=== PATIENT | male | born 1950 ===

== ENCOUNTER → 2025-01-10 13:58 | Outpatient (REF) | payer MEDICARE, SELFPAY | LOC: RAD 13:58 | PROVIDERS: ATTENDING PHYSICIAN Orthopaedic Surgery; FAMILY PHYSICIAN Internal Medicine Geriatric Medicine | DX: M79.662 Pain in left lower leg (principal); M79.661 Pain in right lower leg; Z96.652 Presence of left artificial knee joint; Z96.651 Presence of right artificial knee joint | CPT/HCPCS: 93970 ==

== ENCOUNTER 2025-01-16 22:42 | Inpatient (IN) | payer MEDICARE, SELFPAY ==
[2025-01-16 20:29] VITALS: BP 103/79
--- NOTE | 2025-01-16 20:39 | W.PN.UPDATE ---
Update Note
Progress Note Update
To facilitate communication I'll summarize the patient's situation. He had staged TKA by me with one done in 2022 and one in 2023. 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 Suddenly a week
or two ago he developed a huge knee effusion, fevers and night sweats as well as pain.
I saw him in the office monday and suspecting infection aspirated both knees and sent both samples to [facility] in [place]. The alpha defensin was negative but all other indicators were positive for infection. One knee had 20k wbc, the
other 50k. Synovial crp was kirit high and the DNA analysis showed positive proprionobacterium but negative DNA for staph, moisés or enterococcus. 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
a regular basis that he mostly shrugs off. Presumably this is a acute onset late PJI but since he has symptoms for a week or two it's not entirely fresh.
Plan will be for him to be admitted to hospitalist and I will operate tomorrow at noon for bilateral simultaneous knee revision with antibiotic knee articulating spacers. I have ordered abx for the cement, and iodine irrigation. When admitted I
would be grateful if he could be made NPO p MN. The surgery will be lengthy and invasive and from a medical standpoint any presurgery preparations should anticipate a 3+ hr surgery with possible need for ICU postop. (of note he's ambulatory and
not septic appearing presently)
I spoke with the patient while his was nearby [facility] by phone to communicate the situation. I also reached out to Pratik for orthopedic parts and Katt Linda of the ER to help facilitate his care. I did discuss with him that this is a
very adverse situation. He provided his verbal consent to proceed with surgery as planned.
[2025-01-16 20:56] VITALS: BMI 29.2
--- NOTE | 2025-01-16 21:00 | ED.MUSCINJ ---
HPI-Injury
General
Chief Complaint: Musculo-Skeletal Complaint
Source: patient and spouse
Exam Limitations: none
Time Seen by Provider: 01/16/25 20:38
Nursing documentation reviewed up to this point in time: agreed with
History of Present Illness-Injury
Is this injury a work related problem?: No
Is pt an associate of [facility]/[place]?: No
Initial Injury comments:
Patient sent to ED by Dr. Moody for bilateral knee infections, surgical intervention scheduled for tomorrow. Patient states swelling started approx 2 weeks ago. He reports fever and chills. He was evaluated by Dr. Moody and had both knee
joints asperated, cultures sent. He is unsure of culture results by was asked by Dr Moody to come to ED for admission. Will need bilateral knee revisions tomorrow.
Past History
Past History
ED Past Medical History: Other (Had acute cystitis 03/2022 w antibiotic use and told to get PSA which he hasn't done yet.) and Other (diverticulitis)
ED Past Surgical History: None
Social History
Tobacco: Non-smoker
Alcohol: None
Personal:
Living: with family
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
Review of Systems
Review of Systems
Allergies reviewed?: Yes
All Other Systems: ROS reviewed and negative except as documented in HPI and ROS
Constitutional: Reports no symptoms
EENT: Reports no symptoms
Respiratory: Reports no symptoms
Cardiac: Reports no symptoms
ABD/GI: Reports no symptoms
: Reports no symptoms
Musculoskeletal: Reports joint pain (bilateral knee pain and swelling)
Skin: Reports no symptoms
Neurological: Reports no symptoms
Psychiatric: Reports no symptoms
Musculoskeletal Injury Exam
Musculoskeletal Injury Exam
Bilateral Anterior Knee:
Pain with Movement?: Moderate
Tender to palpation?: Mild
External deformity and angulation?: Mild
Contusion?: None
Hematoma-local bleeding into tissue?: None
Strain- Sprain- Tear (Connective tissue injury)?: None
Crepitus with movement?: No
Joint instability?: No
Malalignment/deformity?: No
Range of motion: Limited
Distal skin color and temperature: normal-warm & good color
Capillary Refill: normal
Normal distal neurovascular exam?: Yes
Peripheral Pulses: dorsalis pedis (left): 3+ and dorsalis pedis (right): 3+
Phy Exam
General Physical Exam
General Presentation: well appearing and mild distress
General age: appears stated age
General Skin: warm and dry
General Habitus: normal
General Mental: alert
General Hydration: appears well hydrated
Musculoskeletal Exam
Musculoskeletal Exam: neuro vasc intact
Skin Exam
Skin Exam: normal color and warm/dry
Psychiatric Exam
Psychiatric Exam: normal mood/affect
Injury Course
Orders/Labs/Results
Orders:
Orders
01/16/25 20:33
Vancomycin [Vancocin] 1,000 mg CEMADD OR ONE
01/16/25 20:34
Tobramycin For Injection Custodial [Tobramycin (Nebcin) 1.2 Gram Vial] 1.2 grams CEMADD OR ONE
01/16/25 21:00
Type And Crossmatch [Type+Screen] Urgent
Complete Blood Count/With Diff Urgent
Comprehensive Metabolic Panel Urgent
Blood Culture Urgent
DAT Source: Blood/Venous
Specimen Description:
01/16/25 21:14
Vancomycin [Vancocin] 2,000 mg 0.9% Sodium Chloride 500 ml [Nss] 500 ml IV NOW
01/17/25 12:00
Povidone Iodine 10% Solution [Povidone Iodine 10%] 114 ml 0.9% Sod Chloride 3000 ml Irr [Nss Irrigation Bag] 3,000 ml IRRIG OR
Abnormal Lab Results
01/16/25
21:00
RBC 3.91 L 10^6/uL
(4.70-6.10)
Hgb 10.3 L g/dL
(13.0-18.0)
Hct 31.2 L %
(39.0-52.0)
MCV 79.8 L fL
(80.0-94.0)
MCH 26.3 L pg
(27.0-31.0)
Plt Count 478 H 10^3/uL
(130-400)
Abs Immat Gran (auto) 0.1 H 10^3/uL
(0-0.05)
Absolute Neuts (auto) 8.2 H 10^3/uL
(1.4-6.5)
Absolute Monos (auto) 0.8 H 10^3/uL
(0.1-0.6)
Immature Gran % 0.7 H %
(0-0.5)
Neutrophils % 78.2 H %
(42.2-75.2)
Lymphocytes % 12.5 L %
(20.5-51.1)
BUN 26 H mg/dl
(9-20)
Glucose 117 H mg/dl
(70-99)
Calcium 8.2 L mg/dl
(8.4-10.2)
Total Protein 5.9 L g/dl
(6.3-8.2)
Albumin 2.9 L g/dl
(3.5-5.0)
01/16/25 21:00
01/16/25 21:00
*Radiology
Radiology exam reviewed: radiology read reviewed
*Pulse Oximetry
SaO2: 98
Oxygen Mode of Delivery: Room air
Patient hypoxic: no
*Critical Care Note
Total Time (30-74mins, 75-104mins- exclusive of procedures): Not Applicable
Update Note
Update Note:
Patient sent to ED for bilateral septic knees. He had replacement of right in 2022, left 2023. No issues until swelling began 2 weeks ago. Seen by ortho, joint aspiration completed. Will need OR tomorrow for knee revisions due to septic joint
findings. WIll admit to hospitalist. Iv antibiotics initiated, NPO after midnight
ED Attending Note
-
Portions of this chart may have been created with voice recognition software.� Occasional wrong word or��sound alike� substitutions may have occurred due to the inherent limitations of voice recognition software.
Discharge Plan
Departure
Patient Disposition: Admit
Date of Disposition: 01/16/25
Time of Disposition: 21:09
Presentation/result/management discussed w/ accepting MD/DO: Hospitalist
Patient with high blood pressure during this ER visit?: No
Condition: Fair
Covid-19: Not Applicable
Discharge Problem:
Septic joint of left knee joint, Septic joint of right knee joint
Prescriptions:
No Action
potassium 99 mg Tablet
99 mg PO DAILY
cyanocobalamin (vitamin B-12) 500 mcg Tablet
500 mcg PO DAILY
ascorbic acid (vitamin C) [Vitamin C] 500 mg Tablet
500 mg PO DAILY
apple cider vinegar 600 mg Capsule
600 mg PO DAILY
ibuprofen 400 mg Tablet
400 mg PO Q8H PRN (Reason: back pain)
omega [id number]-fish oil [Fish Oil] 1,000 mg (120 mg-180 mg) Capsule
1 cap PO DAILY
Interventions
Interventions:
*Risk Screen - Suicide Last Done: 01/16/25 20:29
*General Assessment Last Done: 01/16/25 20:29
*Neglect/Abuse Screening Last Done: 01/16/25 20:29
*ED COVID-19 Vaccine History Last Done: 01/16/25 20:29
*ED Influenza Vaccine History Last Done: 01/16/25 20:29
ED-Musculoskeletal Assessment Last Done: 01/16/25 21:23
Discharge Date and Time
Print Language: SCOTTISH
[2025-01-16 21:14] LABS: Hematocrit 31.2 % (39.0-52.0); Hemoglobin 10.3 g/dL (13.0-18.0); Mean Corp Hgb Conc. 33.0 g/dL (33.0-37.0); Mean Corpuscular Volume 79.8 fL (80.0-94.0); Nucleated Red Blood Cells % 0 % (-); Platelet Count 478 10^3/uL (130-400); Red Cell Dist. Width 13.6 % (11.5-14.5)
[2025-01-16 21:31] LABS: ALT (SGPT) 16 U/L (0-50); AST (SGOT) 18 U/L (17-59); Albumin 2.9 g/dl (3.5-5.0); Alkaline Phosphatase 79 U/L (38-126); Blood Urea Nitrogen 26 mg/dl (9-20); Calcium 8.2 mg/dl (8.4-10.2); Carbon Dioxide 23 mmol/L (22-30); Chloride 105 mmol/L (98-107); Estimated Creatinine Clearance 85 ml/min; Glucose 117 mg/dl (70-99); Potassium 4.2 mmol/L (3.5-5.1); Sodium 136 mmol/L (135-145); Total Protein 5.9 g/dl (6.3-8.2); eGFR > 60.00
--- NOTE | 2025-01-16 21:33 | W.PN.UPDATE ---
Update Note
Progress Note Update
Since I have cultures pending from fluid sent from office it IS ok for patient to have antibiotics started tonight.
--- NOTE | 2025-01-16 21:57 | HPS.HSE ---
Addendum entered and electronically signed by Kareem Cao DO 01/16/25 23:28:
Patient seen and examined independently. Agree with findings and plan as set forth by FLORES Saldaña.
Patient is a 74y M with PMH significant for bilateral TKA (2022 and 2023) who presents to ED for admission for bilateral knee septic arthritis / PJI. Patient is a very healthy 74yo M with no chronic health issue, on no medications. He developed
pain in the knees with tightness in the calves and difficulty with ambulation over the past 6 weeks or so. He presented to his Orthopedic Surgeon when his symptoms persisted. He underwent aspiration of both knees yesterday and today was called and
advised to present to the ED as fluid analysis was consistent with infection.
Patient reports intermittent sweats but no measured fevers. No N/V/D, etc.
Ass:
Bilateral Knee Prosthetic Joint Infection
Propionobacterium infection
Microcytic Anemia
Plan:
Admit for further evaluation and treatment.
Continue IV vancomycin for gram positive septic arthritis / Proprionobacterium.
Orthopedic Surgery notes appreciated. Plan for OR tomorrow for washout / revision / abx coated spacers.
Follow-up final culture results / sensitivities and adjust abx regimen as needed.
Iron studies. Follow H&H nichole-operatively and transfuse if needed.
Original Note:
Family Physician
-
Family Physician:
Chief Complaint
-
Bilateral leg and knee swelling
History of Present Illness
74-year-old male from home who reportedly is a former. He developed bilateral knee effusions with chills and night sweats as well as pain approximately 1 to 2 weeks ago. The patient did not take his actual temperature. He reports he started
developing swelling to his lower feet and ankles and calves over the past 6 to 8 weeks then to his knees. He was seen in the office yesterday by Dr. Moody had aspiration of both knees which was sent out for culture and both were positive for
infection 1 reportedly with 20K WBC other 50K. He also had elevated CRP. Culture showed positive for proprionobacterium. 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 Patient with past
medical history of cystitis, diverticulitis.
Medical History
Past Medical History
Past Medical History: Reports Other
Additional Past Medical History:
Cystitis 2021
History diverticulitis
Past Surgical History: Reports Other
Additional Past Surgical History:
Right knee replacement 2022
Left knee replacement 2023
Social History
Tobacco: Non-smoker
Alcohol: None
Drug: None
Personal:
Living: With Family
Employment: Employed (Patient owns own farm with horses, sheep,)
Family History
Family History: Not pertinent
Allergies / Home Medications
Allergies reflects when Allergies were last updated in [facility].
Home Medications with original date entered in [facility]
Allergy/Medication List:
Allergies
Allergy/AdvReac Type Severity Reaction Status Date / Time
No Known Allergies Allergy Verified 01/16/25 20:56
Home Medications
No Meds [No Current Medications] 01/16/25
Review of Systems
-
History Source: Patient
A 12 point ROS was completed and negative except as noted: Yes
Constitutional: Reports Chills; Denies Fever
EENT: Denies Sore Throat or Runny Nose
Respiratory: Denies Cough or Trouble Breathing
Cardiac: Denies Chest Pain, Diaphoresis, Palpitations or Syncope
Abdomen/GI: Denies Abdominal Pain, Nausea, Vomiting, Diarrhea, Constipated or Bloody Stools
: Denies Dysuria, Frequency, Flank Pain, Incontinence or Difficulty Voiding
Musculoskeletal: Reports Joint Swelling (Bilateral knee effusions) and Edema (+1 bilateral lower leg nonpitting edema with calf pain)
Skin: Denies Itching or Rash
Neurological: Denies Dizzy, Headache or Weakness
Endocrine: Reports No Symptoms
Hematologic/Lymphatic: Reports No Symptoms
Psych: Reports Calm
Physical Exam
Vital Signs
Vital Signs
Temp Pulse Resp BP Pulse Ox
98.6 F 89 15 103/79 98
01/16/25 20:29 01/16/25 20:29 01/16/25 20:29 01/16/25 20:29 01/16/25 21:08
Physical Exam
General: Chills; No Fever or Sweats
HEENT: NormoCephalic, Anicteric, Moist mucous membranes, PERRLA, Seaman Conjunctivae and No Ptosis
Respiratory: Clear; No Wheezes, Rales or Rhonchi
Cardiac: S1/S2, Regular Rhythm and Peripheral Edema (+1 bilateral lower leg nonpitting edema with calf pain)
Breast: Deferred by me
GI: Soft, Non Tender, Non Distended, Normal Bowel Sounds and No Hepatosplenomegaly
Genito-urinary: Deferred by me
Musculoskeletal: No Clubbing, No Cyanosis and Other (+1 bilateral lower leg nonpitting edema with calf pain); No Edema, Left Upper Extremity or Edema, Right Upper Extremity
Skin: Warm and Dry; No Rash or Jaundice
Neuro: AO x 3, No Motor Deficits, Nonfocal/grossly intact, Cranial Nerves Intact and No Sensory Deficits; No Slurred Speech, Facial Droop or Tremors
Psych: Calm
Laboratory Results
-
01/16/25 21:00
01/16/25 21:00
Laboratory Results
Total Bilirubin 0.5 mg/dl (0.2-1.3) 01/16/25 21:00
AST 18 U/L (17-59) 01/16/25 21:00
ALT 16 U/L (0-50) 01/16/25 21:00
Alkaline Phosphatase 79 U/L (38-126) 01/16/25 21:00
Impression/Plan
-
Impression/plan:
Admit to tele
#Bilateral septic knees with bilateral leg edema
#Right knee 2022, left knee 2023 replacements
- Fluid cultures obtained by orthopedic surgeon Dr. Moody in office and sent for cultures
Okay to start antibiotics inpatient
Office synovial fluid aspiration culture showed Culture showed positive for Proprionobacterium.
- N.p.o. after midnight
- OR in a.m. for bilateral simultaneous knee revision with antibiotic knee articulating spacers
- IV vancomycin, tobramycin single dose
-Continue IV vancomycin
-Check EKG
- Type and screen
Venous duplex bilateral legs 01/10/2025 negative for DVT
#Microcytic anemia
Hgb 10.3, MCV 79.8
-Check iron panel, B12, folate
#History of cystitis March 2022
#History of diverticulitis in past
DVT prophylaxis
Bilateral foot pumps
Full code
[2025-01-16] MEDS: VANCOCIN 540 MG IV (22:05)
[2025-01-16 22:52] LABS: Iron 24 ug/dl (49-181)
[2025-01-16 23:02] LABS: Total Iron Binding Capacity 200 ug/dl (261-462)
[2025-01-16 23:46] VITALS: BP 149/87; BMI 28.4
[2025-01-17] VITALS (12 sets, daily range): BP systolic 107–146; BP diastolic 53–75
--- NOTE | 2025-01-17 | PTCARENOTE ---
Recieved pt. from ED. Pt ambulated from stretcher to bed. Pt. oriented to unit and call fu placed within reach. Pt. care ongoing.
[2025-01-17 01:04] LABS: Ferritin 427.0 ng/ml (17.9-464.0)
[2025-01-17 01:36] LABS: Folate 5.7 ng/ml (2.76-20); Vitamin B12 815 pg/ml (239-931)
--- NOTE | 2025-01-17 07:53 | W.PN.HOSP.TC ---
Today's Communication/Plan
-
Continue IV antibiotic.
Repeat blood culture pending.
For OR today.
Echo pending
Assessment / Plan
Assessment / Plan
Impression:
74-year-old male with past medical history of cystitis, diverticulitis, bilateral knee replacement, done on 2022, 2023, He developed bilateral knee effusions with chills and night sweats as well as pain approximately 1 to 2 weeks ago. The patient
did not take his actual temperature. He reports he started developing swelling to his lower feet and ankles and calves over the past 6 to 8 weeks then to his knees. He was seen in the office by Dr. Moody and had aspiration of both knees which
was sent out for culture and both were positive for infection reportedly with 20K WBC other 50K. He also had elevated CRP. Culture showed positive for proprionobacterium. He is unsure of how both knees became infected however tends to get
multiple scrapes and cuts farming. Patient admitted under hospitalist service, orthopedic consulted and plan for OR.
Started on IV antibiotic, infectious ease consulted.
Assessment/plan:
Bilateral septic knees
#Right knee 2022, left knee 2023 replacements
- Fluid cultures obtained by orthopedic surgeon Dr. Moody in office and sent for cultures
Okay to start antibiotics inpatient
Office synovial fluid aspiration culture showed Culture showed positive for Proprionobacterium.
Plan for OR today
Orthopedic/infectious disease
Continue IV Rocephin.
Venous duplex bilateral legs 01/10/2025 negative for DVT
Repeat blood culture pending.
Echo pending
Iron deficiency anemia
On admission Hgb 10.3, MCV 79.8
Iron level 24, saturation 12
Normal B12, folate
Most recent colonoscopy June 2022 shows:
Diverticulosis in the sigmoid colon and in the descending colon, Internal hemorrhoids.
Start oral iron.
Patient denies dark stools or rectal bleeding
History of diverticulitis in past
CODE STATUS: Full code
DVT prophylaxis: SCDs
Diet: NPO
Disposition: Continue IV antibiotic.
Repeat blood culture pending.
For OR today.
Echo pending
Total time spent on today's encounter was 51 minutes which included time spent in counseling the patient/family regarding diagnosis and treatment plan as listed above, goals of care, and symptom management. Case was discussed with nursing staff,
specialists, and care coordinators/case management. All labs and imaging personally reviewed by me. Remainder the time spent in detailed review of previous records, lab data, imaging, and other medical provider documentation.
Anticipated Discharge: > 48 hours
Subjective/Interval History
-
Date of Service: January 17, 2025
Patient seen and examined at bedside, denies any chest pain or shortness of breath, no abdominal pain, no nausea, no vomiting, no diarrhea or constipation.
For OR today.
Objective Data
-
Labs:
Laboratory Results
01/16/25 01/17/25
21:00 06:00
WBC 10.5 Pending
Hgb 10.3 L Pending
Hct 31.2 L Pending
Plt Count 478 H Pending
Sodium 136 Pending
Potassium 4.2 Pending
Chloride 105 Pending
Carbon Dioxide 23 Pending
BUN 26 H Pending
Creatinine 0.8 Pending
Glucose 117 H Pending
Calcium 8.2 L Pending
Total Bilirubin 0.5 Pending
AST 18 Pending
ALT 16 Pending
Alkaline Phosphatase 79 Pending
Vital Signs:
Vital Signs
Temp Pulse Resp BP Pulse Ox
98.6 F 99 20 149/87 97
01/16/25 23:46 01/16/25 23:46 01/16/25 23:46 01/16/25 23:46 01/17/25 00:17
Physical Exam
-
General: Well Developed, Well Nourished, No Apparent Distress and Comfortable
HEENT: Normocephalic, Atraumatic, Moist Mucous Membranes, No Ptosis, PERRLA and Nose Appears Normal
Respiratory: Clear to Auscultation and Non Labored Respirations
Cardiac: Regular Rhythm and S1/S2
Breast: Deferred by me
GI: Soft, Nontender, Nondistended and Normal Bowel Sounds
Genito-urinary: No Costovertebral Tender
Musculoskeletal: No Clubbing, No Cyanosis, No Edema and Other (Bilateral knee effusion)
Skin: Warm
Neuro: Awake, Alert, Oriented, AO x 3 and No Motor Deficits
Psych: Calm
Data Reviewed
-
Diagnostic Radiology: Image personally visualized and interpreted and Report Reviewed by me
CT Scan: Image personally visualized and interpreted and Report Reviewed by me
Ultrasound: Image personally visualized and interpreted and Report Reviewed by me
MRI: Image personally visualized and interpreted and Report Reviewed by me
Medical Tests (Nuc Med, Echo etc): Image personally visualized and interpreted and Report Reviewed by me
Labs: Labs Reviewed by me
Old Records: Reviewed
[2025-01-17 08:53] LABS: Hematocrit 32.4 % (39.0-52.0); Hemoglobin 10.6 g/dL (13.0-18.0); Mean Corp Hgb Conc. 32.7 g/dL (33.0-37.0); Mean Corpuscular Volume 83.1 fL (80.0-94.0); Nucleated Red Blood Cells % 0 % (-); Platelet Count 528 10^3/uL (130-400); Red Cell Dist. Width 13.7 % (11.5-14.5)
--- NOTE | 2025-01-17 09:23 | CON.ORTHO ---
Consultation
-
Date/Time Consultation Requested: 01/17/2025
Date/Time Consultation Performed: 01/17/2025
Requesting Provider: Fay Benton MD
Performing Provider: Ketty López PA-C, for Dr. Grady Moody
Reason for Consultation: Bilateral TKA PJI
Consultation - Orthopedics
History
HPI: Iker is a 74-year-old male who presented to our outpatient orthopedic office 2 days ago complaining of bilateral knee pain and swelling. He states 6 weeks ago he had no symptoms in his bilateral knees and was doing daily and work activities
without any restrictions. Over the course of the past several weeks, but more so the past several days, he began to experience increased swelling about his knees. He has been experiencing associated night sweats and feeling feverish. He denies
any recent illnesses, injuries, breaks in the skin, or dental work. On Monday, his bilateral knees were aspirated and sent for [facility]. Both knees were noted to have a high white blood cell count and positive for Propionibacterium. He was
advised to present to the emergency department under the direction of Dr. Moody. He was admitted to the hospitalist service as he will require a bilateral knee I&D and revision total knee arthroplasty. Overall, he is healthy and takes no
medications. He denies any medical comorbidities or problems with anesthesia in the past.
Past medical history: Nonsignificant.
Past surgical history: Right TKA in 2022, left TKA February 2024.
Social history: Lives at home with . Denies tobacco or alcohol use.
Family history: Noncontributory.
Review of systems: All systems reviewed and negative except for those mentioned in HPI.
Allergies / Home Medications
Allergy/AdvReac Type Severity Reaction Status Date / Time
No Known Allergies Allergy Verified 01/16/25 20:56
�Medication �Instructions �Recorded
No Meds [No Current Medications] 01/16/25
Vital Signs / Lab Results
Temp Pulse Resp BP Pulse Ox
98.3 F 82 17 131/75 98
01/17/25 08:00 01/17/25 08:00 01/17/25 08:00 01/17/25 08:00 01/17/25 08:00
01/17/25 06:59
Physical examination:
General: Well-developed, well nourished male in no acute distress at rest. Not septic appearing.
HEENT: Atraumatic, normocephalic, neck supple.
Heart: Regular rate and rhythm.
Lungs: Nonlabored breathing on room air, no audible wheezing.
Bilateral knees: Incisions about anterior knees are well-healed. No evidence of erythema or drainage. Mild warmth, but large effusions present bilaterally. Range of motion 0 to 120 degrees without pain. No instability. Calfs are soft and
nontender palpation. Neurovascular intact distally.
Assessment / Plan
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
Plan: Unfortunately, Mr. Jules has prosthetic joint infections of his bio bilateral total knee replacements. At this time, our recommendation is to proceed with a bilateral knee I&D and revision total knee arthroplasty. The surgery was explained
in detail along with the associated risk, benefits, and recovery process. Surgical consent was signed and placed at the OR front services agent. Preoperatively, his hemoglobin is low, so I advised him there is a possibility that he will need a blood
transfusion going forward if his hemoglobin continues to drop. Blood consents were signed as well. Antibiotic powder for the cement was ordered and available at the front services agent. Intraoperative irrigation also ordered. Plan will be to take him to
the operating room later this afternoon under the directions of both Dr. Moody and Dr. Longoria. He will remain n.p.o. until that time. Infectious disease has been consulted for postoperative antibiotic recommendations. All questions were
answered and patient was in agreement with current treatment recommendations.
[2025-01-17 09:34] LABS: ALT (SGPT) 15 U/L (0-50); AST (SGOT) 17 U/L (17-59); Albumin 2.9 g/dl (3.5-5.0); Alkaline Phosphatase 71 U/L (38-126); Blood Urea Nitrogen 21 mg/dl (9-20); Calcium 8.3 mg/dl (8.4-10.2); Carbon Dioxide 22 mmol/L (22-30); Chloride 106 mmol/L (98-107); Estimated Creatinine Clearance 97 ml/min; Glucose 84 mg/dl (70-99); Potassium 4.5 mmol/L (3.5-5.1); Sodium 137 mmol/L (135-145); Total Protein 6.0 g/dl (6.3-8.2); eGFR > 60.00
[2025-01-17 09:51] LABS: C-Reactive Protein 226.10 mg/L (0.0-10.00)
--- NOTE | 2025-01-17 09:53 | PHA.VAN.IN ---
Assessment
- Assessment
Renal Function: Appears similar to baseline
Maximum Temperature: 98.6
Minimum Temperature: 98.3
AUC Dosing Plan
- Dosing Variables
Dosing Weight (kg): 92
Dosing CrCl (ml/min): 97
Vd coefficient (L/kg): 0.7
- Empiric Dosing
Initial / Loading Dose: 2000 mg 01/16 at 22:00 (21 mg/kg)
Maintenance Regimen: vanc 1250 mg iv q12h starting 01/17 1800, give 1 g now prior to sx at 1200
Estimated AUC (mcg*h/mL): 486
Estimated Peak (mcg*h/mL): 30.4
Estimated Trough (mcg/ml): 12.5
Estimated Half Life (H): 8.2
- Monitoring
No levels ordered at this time: consider in the upcoming days
Pharmacokinetics Vancomycin I
- -
Patient Age: 74
Patient Sex: Male
Vancomycin Day #: 1
Indication: Skin And Soft Tissue (prosthetic joint infection)
Pertinent Antimicrobial Allergies:
no known allergies
Height / Weight:
Height 5 ft 11 in
Actual Weight 92.193 kg
Pertinent Past Medical History: TKA 2022 and 2023;
- Vital Signs / Lab Results
Temp Pulse Resp BP Pulse Ox
98.3 F 82 17 131/75 98
01/17/25 08:00 01/17/25 08:00 01/17/25 08:00 01/17/25 08:00 01/17/25 08:00
Lab Results - Hematology
01/16/25 01/17/25
21:00 06:59
WBC 10.5 8.1
Lab Results - Chemistry
01/16/25 01/17/25
21:00 06:59
BUN 26 H 21 H
Creatinine 0.8 0.7
Estimated Creat Clear 85 97
Albumin 2.9 L 2.9 L
[2025-01-17] MEDS: VANCOCIN 200 IV (10:29)
--- NOTE | 2025-01-17 10:58 | CM ---
Patient seen at bedside on , with and son. Patient states that he lives with his in a one story home with 3 steps to enter; iron railings on both sides. Patient for OR today. Patient has had [facility] in the past after knee
replacements. Patient PCP is Dr. Taylor and he uses the [facility] on [facility]. Patient anticipates needing IV antibiotics per and may benefit from therapy assessment to clarify level of care needed at discharge. Patient very determined to
go home with VN but family encouraged him to discuss options with physician. IF patient needs iv antibiotics he would like to use [facility], pending physician and therapy recommendations patient may need referrals for Acute rehab or [facility].
CM will continue to follow for discharge planning needs.
Plan; pending medical treatment plan; therapy recommendations.
--- NOTE | 2025-01-17 10:59 | CON.ID ---
Consultation
-
Date/Time Consultation Requested: 01/17/25 7:50
Date/Time Consultation Performed: 01/17/25 10:59
Requesting Provider: Dr Benton
Performing Provider: Dr Michael
Reason for Consultation: Bilateral TKA septic joint
Chief Complaint / Past History
Chief Complaint
bilateral septic knees
History of Present Illness
Mr Jules is a 74 year old male with history of bilateral total knee replacements 2022 and 2023 who presented here from his orthopedic surgeons office for pain and swelling in the bilateral knees for about 6 weeks. He also had night sweats and
felt feverish. He denies any recent illnesses, injuries, breaks in the skin, or dental work. Reports no known immunosuppression or cancer diagnoses. Only medication is a multivitamin. He was seen in his orthopedist's office and both knees were
aspirated for synovasure and both resulted with P acnes by PCR. He was referred to the ER for bilateral I&D and revision.
Since arrival here he has been afebrile, bp stable, wbc 10.5 now 8.1, hgb 10.3, plt 478, L shift was noted, cr 0.8, CRP 226, ESR pending, there is no imaging of the knees, a single set of blood cultures was sent and patient was started on
vancomycin. ID is consulted for assistance with management. He is currently on vancomycin.
Past History
Additional Past Medical History:
Cystitis 2021
History diverticulitis
Additional Past Surgical History:
Right knee replacement 2022
Left knee replacement 2023
Allergy History:
No Known Allergies Allergy (Verified 01/16/25 20:56)
Medications Reviewed: Yes
Social History
Tobacco: Non-Smoker
Alcohol: None
Drug: None
Family History
Family History: Not Pertinent
Review of Systems
Review of Systems
General: Fever and Chills
A 12 point ROS was completed and negative except as noted above
Vital Signs
Temp Pulse Resp BP Pulse Ox
98.3 F 82 17 131/75 98
01/17/25 08:00 01/17/25 08:00 01/17/25 08:00 01/17/25 08:00 01/17/25 08:00
Physical Exam
Physical Exam
Constitutional: No Acute Distress
Cardiovascular: Regular Rate and S1/S2; Negative Murmur or Rub
Pulmonary: Clear and Symmetric; Negative Wheezes, Rales or Rhonchi
Gastrointestinal: Soft, Non Tender, Non Distended and Normal Bowel Sounds
Extremities: Negative Splinter Hemorrhage or [place] Lesions
Musculoskeletal: Other (biltaeral knees swollen, midly warm, no erythema)
Skin: Warm and Dry; Negative Rash or Jaundice
Lab / Diagnostic Study Results
01/17/25 06:59
01/17/25 06:59
Abs Immat Gran (auto) 0.1 10^3/uL (0-0.05) H 01/17/25 06:59
Absolute Neuts (auto) 6.4 10^3/uL (1.4-6.5) 01/17/25 06:59
Absolute Lymphs (auto) 0.9 10^3/uL (1.2-3.4) L 01/17/25 06:59
Absolute Monos (auto) 0.6 10^3/uL (0.1-0.6) 01/17/25 06:59
Absolute Basos (auto) 0.0 10^3/uL (0-0.2) 01/17/25 06:59
Immature Gran % 0.7 % (0-0.5) H 01/17/25 06:59
Neutrophils % 79.4 % (42.2-75.2) H 01/17/25 06:59
Lymphocytes % 11.4 % (20.5-51.1) L 01/17/25 06:59
Monocytes % 7.2 % (1.7-9.3) 01/17/25 06:59
Eosinophils % 1.1 % (0-6) 01/17/25 06:59
Basophils % 0.2 % (0-2) 01/17/25 06:59
C-Reactive Protein 226.10 mg/L (0.0-10.00) H 01/17/25 07:27
Microbiology Results
Micro:
01/16/25 21:00 Blood Culture - Pending
Blood/Venous
Assessment / Plan
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
- endocarditis of [place] valve with P acnes is exceedingly rare; however would pursue TTE and blood cultures x2 given bilateral infections
- organism identified on synovasure of each knee separately
- for the OR today
- switch to ceftriaxone, stop vancomycin
- plan a course of outpatient IV antibiotics
Care Review
Plan reviewed with: Physician (Dr Moody)
[2025-01-17] MEDS: ROCEPHIN IV (14:24)
[2025-01-17] MEDS: STERILE WATER FOR INJECTION IV (14:24)
--- NOTE | 2025-01-17 17:21 | W.PN.UPDATE ---
Update Note
Progress Note Update
Bilat knee revisions completed. Bilateral knee purulence present. Full synovectomy and revision of all components with high dose abx cement performed. Postop xray looks good, wbat bLE . Apprec med and ID help.
--- NOTE | 2025-01-17 17:22 | PTCARENOTE ---
report given to nurse Giulia on . patient's belongings including shoes and undergarments brought to room 5857
[2025-01-17] MEDS: ZOFRAN 4 MG IV (17:56)
[2025-01-17] MEDS: DILAUDID 0.5 MG IV ×2 (17:59→18:18)
[2025-01-17] MEDS: COMPAZINE 5 MG IV (18:32)
[2025-01-17] MEDS: ROXICODONE 5 MG PO ×2 (18:42→21:37)
--- NOTE | 2025-01-17 19:30 | PTCARENOTE ---
Pt arrived to unit from PACU, AAOx3, able to make needs known, pain minimal in b/l knees neurovascular WNL. dressings with acewraps CDI. Pt oriented to room and hospital policies, call fu within reach, will continue with plan of care.
[2025-01-17] MEDS: SENOKOT 17.2 MG PO (20:07)
[2025-01-17] MEDS: BACTROBAN 2% OINTMENT NASAL (20:07)
[2025-01-17] MEDS: COLACE 100 MG PO (20:07)
[2025-01-17] MEDS: ASPIRIN 325 MG PO (21:37)
[2025-01-18] MEDS: ZOFRAN 4 MG IV (00:36)
[2025-01-18 03:38] VITALS: BP 128/83
[2025-01-18] MEDS: ROXICODONE 10 MG PO ×4 (04:04→23:53)
[2025-01-18 06:45] LABS: Hematocrit 30.4 % (39.0-52.0); Hemoglobin 9.8 g/dL (13.0-18.0); Mean Corp Hgb Conc. 32.2 g/dL (33.0-37.0); Mean Corpuscular Volume 82.2 fL (80.0-94.0); Nucleated Red Blood Cells % 0 % (-); Platelet Count 518 10^3/uL (130-400); Red Cell Dist. Width 13.7 % (11.5-14.5)
[2025-01-18 07:15] LABS: ALT (SGPT) 16 U/L (0-50); AST (SGOT) 18 U/L (17-59); Albumin 2.7 g/dl (3.5-5.0); Alkaline Phosphatase 62 U/L (38-126); Blood Urea Nitrogen 24 mg/dl (9-20); Calcium 7.8 mg/dl (8.4-10.2); Carbon Dioxide 21 mmol/L (22-30); Chloride 108 mmol/L (98-107); Estimated Creatinine Clearance 97 ml/min; Glucose 117 mg/dl (70-99); Potassium 4.7 mmol/L (3.5-5.1); Sodium 137 mmol/L (135-145); Total Protein 5.5 g/dl (6.3-8.2); eGFR > 60.00
[2025-01-18 07:20] VITALS: BP 130/76
[2025-01-18] MEDS: COLACE 100 MG PO ×2 (08:31→19:11)
[2025-01-18] MEDS: ASPIRIN 325 MG PO (08:31)
[2025-01-18] MEDS: BACTROBAN 2% OINTMENT 1 APPLIC NASAL ×2 (08:32→20:00)
[2025-01-18] MEDS: SENOKOT 17.2 MG PO ×2 (08:32→19:11)
--- NOTE | 2025-01-18 08:54 | W.PN.ORTHO ---
Today's Communication / Plan
-
74-year-old male postoperative day 1 bilateral knee PJI debridement irrigation and revision with Dr. Moody
- Current cultures no growth to date; blood cultures no growth to date; Synovasure dated 01/15/2025 negative alpha defense and, CRP greater than 60, total cell count 50,000 with neutrophils 91.3% and mononuclear cells 8.7 and positive acromial ID
panel of P acnes.
- Infectious disease following, appreciate assistance
- Weightbearing as tolerated to bilateral lower extremities.
- PT/OT/DC planning
- Internal medicine as primary; appreciate assistance of this patient
- DVT PPx: Recommend ASA daily unless recommended otherwise per primary, SCDs while in bed
- Pain controlled with current regimen
- Diet per primary
Orthopedic surgery will continue to follow
Assessment
.
Distal Motor Intact: Yes
Dressing:
Clean, dry and intact.
Plan
.
Surgery / Date: B/L knee PJI I&D revision Dr. Moody 01/17
Activity:
Out of bed.
PT/OT
Subjective
.
.:
Patient resting comfortably.
Vital Signs and Labs
.
Vital Signs and Labs:
Lab Results
01/18/25 05:27
01/18/25 05:27
Temp Pulse Resp BP Pulse Ox
97.8 F 85 16 130/76 97
01/18/25 07:20 01/18/25 07:20 01/18/25 07:20 01/18/25 07:20 01/18/25 07:20
--- NOTE | 2025-01-18 10:14 | W.PN.HOSP.TC ---
Today's Communication/Plan
-
Continue IV antibiotic.
blood culture / OR culture pending.
Echo pending
Assessment / Plan
Assessment / Plan
Impression:
74-year-old male with past medical history of cystitis, diverticulitis, bilateral knee replacement, done on 2022, 2023, He developed bilateral knee effusions with chills and night sweats as well as pain approximately 1 to 2 weeks ago. The patient
did not take his actual temperature. He reports he started developing swelling to his lower feet and ankles and calves over the past 6 to 8 weeks then to his knees. He was seen in the office by Dr. Moody and had aspiration of both knees which
was sent out for culture and both were positive for infection reportedly with 20K WBC other 50K. He also had elevated CRP. Culture showed positive for proprionobacterium. He is unsure of how both knees became infected however tends to get
multiple scrapes and cuts farming. Patient admitted under hospitalist service, orthopedic consulted and plan for OR.
Started on IV antibiotic, infectious disease consulted.
Assessment/plan:
Bilateral septic knees
#Right knee 2022, left knee 2023 replacements
- Fluid cultures obtained by orthopedic surgeon Dr. Moody in office and sent for cultures
Okay to start antibiotics inpatient
Office synovial fluid aspiration culture showed Culture showed positive for Proprionobacterium.
Plan for OR today
Orthopedic/infectious disease
Continue IV Rocephin.
Venous duplex bilateral legs 01/10/2025 negative for DVT
Repeat blood culture / OR culture pending.
Echo pending
Iron deficiency anemia
On admission Hgb 10.3, MCV 79.8
Iron level 24, saturation 12
Normal B12, folate
Most recent colonoscopy June 2022 shows:
Diverticulosis in the sigmoid colon and in the descending colon, Internal hemorrhoids.
Start oral iron.
Patient denies dark stools or rectal bleeding
History of diverticulitis in past
CODE STATUS: Full code
DVT prophylaxis: SCDs
Diet:Regular
Disposition: Continue IV antibiotic.
blood culture / OR culture pending.
Echo pending
Total time spent on today's encounter was 51 minutes which included time spent in counseling the patient/family regarding diagnosis and treatment plan as listed above, goals of care, and symptom management. Case was discussed with nursing staff,
specialists, and care coordinators/case management. All labs and imaging personally reviewed by me. Remainder the time spent in detailed review of previous records, lab data, imaging, and other medical provider documentation.
Anticipated Discharge: > 48 hours
Subjective/Interval History
-
Date of Service: January 18, 2025
Patient seen and examined at bedside, denies any chest pain or shortness of breath, no abdominal pain, no nausea, no vomiting, no diarrhea or constipation.
Mild bilateral knee pain
Objective Data
-
Labs:
Laboratory Results
01/18/25
05:27
WBC 12.5 H
Hgb 9.8 L
Hct 30.4 L
Plt Count 518 H
Sodium 137
Potassium 4.7
Chloride 108 H
Carbon Dioxide 21 L
BUN 24 H
Creatinine 0.7
Glucose 117 H
Calcium 7.8 L
Total Bilirubin 0.4
AST 18
ALT 16
Alkaline Phosphatase 62
Vital Signs:
Vital Signs
Temp Pulse Resp BP Pulse Ox
97.8 F 85 16 130/76 97
01/18/25 07:20 01/18/25 07:20 01/18/25 07:20 01/18/25 07:20 01/18/25 07:20
I&O
01/17/25 01/18/25 01/19/25
06:59 06:59 06:59
Intake Total 330 / 330
Balance 330 / 330
Physical Exam
-
General: Well Developed, Well Nourished, No Apparent Distress and Comfortable
HEENT: Normocephalic, Atraumatic, Moist Mucous Membranes, No Ptosis, PERRLA and Nose Appears Normal
Respiratory: Clear to Auscultation and Non Labored Respirations
Cardiac: Regular Rhythm and S1/S2
Breast: Deferred by me
GI: Soft, Nontender, Nondistended and Normal Bowel Sounds
Genito-urinary: No Costovertebral Tender
Musculoskeletal: No Clubbing, No Cyanosis, No Edema and Other (Bilateral knee dressing)
Skin: Warm
Neuro: Awake, Alert, Oriented, AO x 3 and No Motor Deficits
Psych: Calm
--- NOTE | 2025-01-18 12:05 | W.PN.ID1 ---
Date of Service
Date of Service: January 18, 2025
Today's Communication
will need a course of IV antibiotics
also awaiting echo
Assessment / Plan
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
- endocarditis of [place] valve with P acnes is exceedingly rare; however would pursue TTE and blood cultures x2 given bilateral infections - awaiting results
- organism identified on synovasure of each knee separately - P acnes
- S/p revision of the bilateral knees with new components yesterday
- continue ceftriaxone
- plan a course of outpatient IV antibiotics
Chief Complaint
-: Other (prosthetic knee joint infections)
Subjective / Review of Systems
afebrile
bp stable
s/p revision of the bilateral knees with new knee components and antibiotic cement
Vital Signs / Physical Exam
Vital Signs
Vital Signs
Temp Pulse Resp BP Pulse Ox
97.8 F 85 16 130/76 97
01/18/25 07:20 01/18/25 07:20 01/18/25 07:20 01/18/25 07:20 01/18/25 07:20
Physical Exam
Constitutional: No Acute Distress
Cardiovascular: Regular Rate and S1/S2; Negative Murmur or Rub
Pulmonary: Clear and Symmetric; Negative Wheezes or Rales
Gastrointestinal: Soft, Non Tender, Non Distended and Normal Bowel Sounds
Extremities: Other (dressing in place)
Skin: Warm and Dry; Negative Rash or Jaundice
Objective Data
Lab Data
Lab Results
01/18/25 05:27
01/18/25 05:27
ESR 87 mm/hour (0-20) H 01/17/25 07:28
Estimated Creat Clear 97 ml/min 01/18/25 05:27
Total Bilirubin 0.4 mg/dl (0.2-1.3) 01/18/25 05:27
AST 18 U/L (17-59) 01/18/25 05:27
ALT 16 U/L (0-50) 01/18/25 05:27
Alkaline Phosphatase 62 U/L (38-126) 01/18/25 05:27
C-Reactive Protein 226.10 mg/L (0.0-10.00) H 01/17/25 07:27
Most recent labs reviewed.
Micro Results:
01/17/25 11:52 Blood Culture - Preliminary
Blood/Venous No Growth in 24 hours- Final report to follow
01/16/25 21:00 Blood Culture - Preliminary
Blood/Venous No Growth in 24 hours- Final report to follow
01/17/25 15:02 Tissue Culture - Pending
Knee - Right Gram Stain - Preliminary
01/17/25 15:02 Tissue Culture - Pending
Knee - Left Gram Stain - Preliminary
[2025-01-18] MEDS: STERILE WATER FOR INJECTION 20 ML IV (12:12)
[2025-01-18] MEDS: ROCEPHIN 2000 MG IV (12:12)
[2025-01-18 15:45] VITALS: BP 125/67
[2025-01-18 19:15] VITALS: BP 124/80
[2025-01-19 03:00] VITALS: BP 119/66
[2025-01-19] MEDS: ROXICODONE 10 MG PO ×4 (03:56→21:44)
[2025-01-19 06:20] LABS: Hematocrit 27.7 % (39.0-52.0); Hemoglobin 9.1 g/dL (13.0-18.0); Mean Corp Hgb Conc. 32.9 g/dL (33.0-37.0); Mean Corpuscular Volume 82.4 fL (80.0-94.0); Nucleated Red Blood Cells % 0 % (-); Platelet Count 461 10^3/uL (130-400); Red Cell Dist. Width 13.9 % (11.5-14.5)
[2025-01-19 06:42] LABS: ALT (SGPT) 15 U/L (0-50); AST (SGOT) 21 U/L (17-59); Albumin 2.6 g/dl (3.5-5.0); Alkaline Phosphatase 61 U/L (38-126); Blood Urea Nitrogen 28 mg/dl (9-20); Calcium 7.9 mg/dl (8.4-10.2); Carbon Dioxide 22 mmol/L (22-30); Chloride 106 mmol/L (98-107); Estimated Creatinine Clearance 68 ml/min; Glucose 95 mg/dl (70-99); Potassium 4.3 mmol/L (3.5-5.1); Sodium 135 mmol/L (135-145); Total Protein 5.3 g/dl (6.3-8.2); eGFR > 60.00
[2025-01-19 08:00] VITALS: BP 127/90
[2025-01-19] MEDS: SENOKOT 17.2 MG PO ×2 (08:40→20:27)
[2025-01-19] MEDS: FEOSOL 325 MG PO (08:40)
[2025-01-19] MEDS: ASPIRIN 325 MG PO (08:40)
[2025-01-19] MEDS: COLACE 100 MG PO ×2 (08:40→20:27)
--- NOTE | 2025-01-19 09:49 | W.PN.ORTHO ---
Today's Communication / Plan
-
74-year-old male postoperative day 2 bilateral knee PJI debridement irrigation and revision with Dr. Moody
- Current cultures no growth to date; blood cultures no growth to date; Synovasure dated 01/15/2025 negative alpha defense and, CRP greater than 60, total cell count 50,000 with neutrophils 91.3% and mononuclear cells 8.7 and positive acromial ID
panel of P acnes.
- Infectious disease following, appreciate assistance
- Weightbearing as tolerated to bilateral lower extremities.
- PT/OT/DC planning
- Internal medicine as primary; appreciate assistance of this patient
- DVT PPx: Recommend ASA daily unless recommended otherwise per primary, SCDs while in bed
- Pain controlled with current regimen
- Diet per primary
Orthopedic surgery will continue to follow
Assessment
.
Distal Motor Intact: Yes
Dressing:
Clean, dry and intact.
Plan
.
Surgery / Date: B/L knee PJI I&D revision Dr. Moody 01/17
Activity:
Out of bed.
PT/OT
Subjective
.
.:
Patient resting comfortably.
Vital Signs and Labs
.
Vital Signs and Labs:
Lab Results
01/19/25 05:50
01/19/25 05:50
Temp Pulse Resp BP Pulse Ox
98.1 F 100 16 127/90 97
01/19/25 08:00 01/19/25 08:00 01/19/25 08:00 01/19/25 08:00 01/19/25 08:00
--- NOTE | 2025-01-19 10:13 | W.PN.ID1 ---
Date of Service
Date of Service: January 19, 2025
Today's Communication
- continue ceftriaxone
- plan a course of outpatient IV antibiotics
- awaiting echo
Assessment / Plan
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
- endocarditis of [place] valve with P acnes is exceedingly rare; however would pursue TTE and blood cultures x2 given bilateral infections - awaiting results anticipated monday
- organism identified on synovasure of each knee separately - P acnes
- S/p revision of the bilateral knees with new components 01/17
- continue ceftriaxone
- place PICC line
- plan a course of outpatient IV antibiotics
Chief Complaint
-: Other (prosthetic knee joint infections)
Subjective / Review of Systems
afebrile
bp stable
awaiting echo
Vital Signs / Physical Exam
Vital Signs
Vital Signs
Temp Pulse Resp BP Pulse Ox
98.1 F 100 16 127/90 97
01/19/25 08:00 01/19/25 08:00 01/19/25 08:00 01/19/25 08:00 01/19/25 08:00
Physical Exam
Constitutional: No Acute Distress
Cardiovascular: Regular Rate and S1/S2; Negative Murmur or Rub
Pulmonary: Clear and Symmetric; Negative Wheezes or Rales
Gastrointestinal: Soft, Non Tender, Non Distended and Normal Bowel Sounds
Skin: Warm and Dry; Negative Rash or Jaundice
Objective Data
Lab Data
Lab Results
01/19/25 05:50
01/19/25 05:50
ESR 87 mm/hour (0-20) H 01/17/25 07:28
Estimated Creat Clear 68 ml/min 01/19/25 05:50
Total Bilirubin 0.5 mg/dl (0.2-1.3) 01/19/25 05:50
AST 21 U/L (17-59) 01/19/25 05:50
ALT 15 U/L (0-50) 01/19/25 05:50
Alkaline Phosphatase 61 U/L (38-126) 01/19/25 05:50
C-Reactive Protein 226.10 mg/L (0.0-10.00) H 01/17/25 07:27
Most recent labs reviewed.
Micro Results:
01/17/25 15:02 Tissue Culture - Preliminary
Knee - Left No Growth After 48 Hours
Gram Stain - Preliminary
01/17/25 15:02 Tissue Culture - Preliminary
Knee - Right No Growth After 48 Hours
Gram Stain - Preliminary
01/16/25 21:00 Blood Culture - Preliminary
Blood/Venous No Growth in 48 hours- Final report to follow
01/17/25 11:52 Blood Culture - Preliminary
Blood/Venous No Growth in 24 hours- Final report to follow
--- NOTE | 2025-01-19 11:24 | W.PN.HOSP.TC ---
Today's Communication/Plan
-
Continue IV antibiotic.
blood culture / OR culture pending.
Echo pending
Ordered PICC line
Assessment / Plan
Assessment / Plan
Impression:
74-year-old male with past medical history of cystitis, diverticulitis, bilateral knee replacement, done on 2022, 2023, He developed bilateral knee effusions with chills and night sweats as well as pain approximately 1 to 2 weeks ago. The patient
did not take his actual temperature. He reports he started developing swelling to his lower feet and ankles and calves over the past 6 to 8 weeks then to his knees. He was seen in the office by Dr. Moody and had aspiration of both knees which
was sent out for culture and both were positive for infection reportedly with 20K WBC other 50K. He also had elevated CRP. Culture showed positive for proprionobacterium. He is unsure of how both knees became infected however tends to get
multiple scrapes and cuts farming. Patient admitted under hospitalist service, orthopedic consulted and plan for OR.
Started on IV antibiotic, infectious disease consulted.
Ordered echocardiogram.
Assessment/plan:
Bilateral septic knees
Right knee 2022, left knee 2023 replacements
Fluid cultures obtained by orthopedic surgeon Dr. Moody in office and sent for cultures
Orthopedic/infectious disease
Status post bilateral knee PJI debridement irrigation and revision with Dr. Moody
Continue IV Rocephin.
Venous duplex bilateral legs 01/10/2025 negative for DVT
Repeat blood culture / OR culture pending.
Echo pending
Order PICC line
Iron deficiency anemia
On admission Hgb 10.3, MCV 79.8
Iron level 24, saturation 12
Normal B12, folate
Most recent colonoscopy June 2022 shows:
Diverticulosis in the sigmoid colon and in the descending colon, Internal hemorrhoids.
Start oral iron.
Patient denies dark stools or rectal bleeding
History of diverticulitis in past
CODE STATUS: Full code
DVT prophylaxis: SCDs
Diet:Regular
Disposition: Continue IV antibiotic.
blood culture / OR culture pending.
Echo pending
Ordered PICC line
Total time spent on today's encounter was 51 minutes which included time spent in counseling the patient/family regarding diagnosis and treatment plan as listed above, goals of care, and symptom management. Case was discussed with nursing staff,
specialists, and care coordinators/case management. All labs and imaging personally reviewed by me. Remainder the time spent in detailed review of previous records, lab data, imaging, and other medical provider documentation.
Anticipated Discharge: > 48 hours
Subjective/Interval History
-
Date of Service: January 19, 2025
Patient seen and examined at bedside, denies any chest pain or shortness of breath, no abdominal pain, no nausea, no vomiting, no diarrhea or constipation.
Mild bilateral knee pain
Objective Data
-
Labs:
Laboratory Results
01/19/25
05:50
WBC 9.4
Hgb 9.1 L
Hct 27.7 L
Plt Count 461 H
Sodium 135
Potassium 4.3
Chloride 106
Carbon Dioxide 22
BUN 28 H
Creatinine 1.0
Glucose 95
Calcium 7.9 L
Total Bilirubin 0.5
AST 21
ALT 15
Alkaline Phosphatase 61
Vital Signs:
Vital Signs
Temp Pulse Resp BP Pulse Ox
98.1 F 100 16 127/90 97
01/19/25 08:00 01/19/25 08:00 01/19/25 08:00 01/19/25 08:00 01/19/25 08:00
I&O
01/18/25 01/19/25 01/20/25
06:59 06:59 06:59
Intake Total 330 / 330 560 / 560
Balance 330 / 330 560 / 560
Physical Exam
-
General: Well Developed, Well Nourished, No Apparent Distress and Comfortable
HEENT: Normocephalic, Atraumatic, Moist Mucous Membranes, No Ptosis, PERRLA and Nose Appears Normal
Respiratory: Clear to Auscultation and Non Labored Respirations
Cardiac: Regular Rhythm and S1/S2
Breast: Deferred by me
GI: Soft, Nontender, Nondistended and Normal Bowel Sounds
Genito-urinary: No Costovertebral Tender
Musculoskeletal: No Clubbing, No Cyanosis, No Edema and Other (Bilateral knee dressing)
Skin: Warm
Neuro: Awake, Alert, Oriented, AO x 3 and No Motor Deficits
Psych: Calm
[2025-01-19 11:53] VITALS: BP 120/77
[2025-01-19] MEDS: ROCEPHIN 2000 MG IV (11:55)
[2025-01-19] MEDS: STERILE WATER FOR INJECTION 20 ML IV (11:55)
[2025-01-19] MEDS: FLUSH (NSS) 2 FLUSH IV ×2 (11:56→22:40)
[2025-01-19 16:01] VITALS: BP 144/84
--- NOTE | 2025-01-19 18:00 | VATNOTE ---
PICC placed as ordered. CXR done, PICC malpositioned. Will reposition catheter and repeat cxr.
--- NOTE | 2025-01-19 18:27 | VATNOTE ---
Attempted to reposition right picc line. Unable to re-advance catheter despite multiple attempts. When wire removed, it was noted to be bent in numerous places. PICC removed. VAT to attempt left sided placement at a later time. Primary RN made
aware, TT sent to ordering physician.
[2025-01-19 19:00] VITALS: BP 100/62
[2025-01-19] MEDS: TYLENOL 650 MG PO (21:43)
[2025-01-19] MEDS: DILAUDID 0.5 MG IV (22:40)
[2025-01-19 23:00] VITALS: BP 95/54
[2025-01-20] MEDS: TYLENOL 650 MG PO ×2 (02:00→06:28)
[2025-01-20] MEDS: ROXICODONE 5 MG PO ×3 (02:00→16:32)
[2025-01-20 02:07] VITALS: BP 126/72
[2025-01-20 07:15] LABS: Hematocrit 27.9 % (39.0-52.0); Hemoglobin 9.2 g/dL (13.0-18.0); Mean Corp Hgb Conc. 33.0 g/dL (33.0-37.0); Mean Corpuscular Volume 82.5 fL (80.0-94.0); Nucleated Red Blood Cells % 0 % (-); Platelet Count 442 10^3/uL (130-400); Red Cell Dist. Width 13.9 % (11.5-14.5)
[2025-01-20 07:24] LABS: ALT (SGPT) 15 U/L (0-50); AST (SGOT) 21 U/L (17-59); Albumin 2.6 g/dl (3.5-5.0); Alkaline Phosphatase 61 U/L (38-126); Blood Urea Nitrogen 30 mg/dl (9-20); Calcium 7.9 mg/dl (8.4-10.2); Carbon Dioxide 23 mmol/L (22-30); Chloride 107 mmol/L (98-107); Estimated Creatinine Clearance 68 ml/min; Glucose 94 mg/dl (70-99); Potassium 4.2 mmol/L (3.5-5.1); Sodium 135 mmol/L (135-145); Total Protein 5.3 g/dl (6.3-8.2); eGFR > 60.00
[2025-01-20 07:25] VITALS: BP 134/65
[2025-01-20] MEDS: FEOSOL 325 MG PO (08:22)
[2025-01-20] MEDS: SENOKOT 17.2 MG PO (08:22)
[2025-01-20] MEDS: COLACE 100 MG PO (08:22)
[2025-01-20] MEDS: ASPIRIN 325 MG PO (08:22)
--- NOTE | 2025-01-20 08:26 | W.PN.ORTHO ---
Today's Communication / Plan
-
Appreciate the primary team and consultants, continue Tx
Appreciate CM, ? Home with [facility] ?
Continue WBAT B/L LEs on walker
PT/OT
ASA 325mg daily 4 weeks for DVT ppx
Patient with PICC, contiue IV Rocephin
NGTD on IOCxs, NGTD on BCx
Soft dressings (ABDs and [place]) reapplied by RN
Nancy out at 2 weeks in office
Will follow
Assessment
.
Distal Motor Intact: Yes
Dressing:
Clean, dry and intact. Soft dressings with dried drainage. Upon removal, bone dry
Assessment:
POD#3 B/L knee I&D, component exchange, synovectomy
All things considered doing/feeling well
Calves soft, nontender
Plan
.
Surgery / Date: B/L knee PJI I&D revision 3 Jan ([place])
DVT Prophylaxis: Aspirin
Activity:
Out of bed. WBAT B/L LEs on walker
PT/OT
Discharge Plan: Other (appreciate CM)
Subjective
.
.:
Patient resting comfortably. All things considered, in good spirits
Vital Signs and Labs
.
Vital Signs and Labs:
Lab Results
01/20/25 06:25
01/20/25 06:25
Temp Pulse Resp BP Pulse Ox
97.9 F 85 16 134/65 95
01/20/25 07:25 01/20/25 07:25 01/20/25 07:25 01/20/25 07:25 01/20/25 07:25
--- NOTE | 2025-01-20 09:51 | W.PN.ID1 ---
Date of Service
Date of Service: January 20, 2025
Today's Communication
- awaiting TTE results
- start setting up home IV antibiotics
Assessment / Plan
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
- awaiting TTE results
- organism identified on synovasure of each knee separately - P acnes
- S/p revision of the bilateral knees with new components 01/17
- continue ceftriaxone
- place PICC line
- plan a course of outpatient IV antibiotics
Chief Complaint
-: Other (prosthetic knee joint infections)
Subjective / Review of Systems
afebrile
bp stable
had echo but read is pending
Vital Signs / Physical Exam
Vital Signs
Vital Signs
Temp Pulse Resp BP Pulse Ox
97.9 F 85 16 134/65 95
01/20/25 07:25 01/20/25 07:25 01/20/25 07:25 01/20/25 07:25 01/20/25 07:25
Physical Exam
Constitutional: No Acute Distress
Cardiovascular: Regular Rate and S1/S2; Negative Murmur or Rub
Pulmonary: Clear and Symmetric; Negative Wheezes or Rales
Gastrointestinal: Soft, Non Tender, Non Distended and Normal Bowel Sounds
Skin: Warm and Dry; Negative Rash or Jaundice
Objective Data
Lab Data
Lab Results
01/20/25 06:25
01/20/25 06:25
ESR 87 mm/hour (0-20) H 01/17/25 07:28
Estimated Creat Clear 68 ml/min 01/20/25 06:25
Total Bilirubin 0.5 mg/dl (0.2-1.3) 01/20/25 06:25
AST 21 U/L (17-59) 01/20/25 06:25
ALT 15 U/L (0-50) 01/20/25 06:25
Alkaline Phosphatase 61 U/L (38-126) 01/20/25 06:25
C-Reactive Protein 226.10 mg/L (0.0-10.00) H 01/17/25 07:27
Most recent labs reviewed.
Micro Results:
01/16/25 21:00 Blood Culture - Preliminary
Blood/Venous No Growth in 72 hours- Final report to follow
01/17/25 11:52 Blood Culture - Preliminary
Blood/Venous No Growth in 48 hours- Final report to follow
01/17/25 15:02 Tissue Culture - Preliminary
Knee - Left No Growth After 48 Hours
Gram Stain - Preliminary
01/17/25 15:02 Tissue Culture - Preliminary
Knee - Right No Growth After 48 Hours
Gram Stain - Preliminary
--- NOTE | 2025-01-20 10:02 | CM ---
Addendum entered by Jose Maria Doss 01/20/25 14:41:
CM spoke to [facility] RN Caryl and she confirmed they are able to start home infusion therapy tomorrow, medications will be delivered to pt's home today and pt can be discharged home today. per Caryl, [facility] will
provide home Pt and OT.
CM spoke to pt's spouse Swetha and she stated she spoke to [facility] and [facility]N and she will come to the hospital to transport pt home.
Discharge order noted. Both pt and his spouse are aware, expressed their agreement. IMM reviewed, placed on chart, pt has a copy.
Please fax discharge instructions to [facility] and [facility] at [phone].
D/C plan: home with [facility] and home infusion therapy and family support. Spouse and daughter to transport.
Addendum entered by Jose Maria Doss 01/20/25 12:41:
ANITA spoke to [facility] patient Caryl [phone] she stated she is working to accept the pt for home infusion therapy and planning to start home infusion on Monday. Pt will need to have IV infusion therapy tomorrow and will be discharged
home and [facility] will start services on Monday. [facility] will confirm the plan today.
Per [facility] retail service representative they provided medications and nursing and if pt needs PT/OT then pt can be referred to pt's preferred VN vendor. Pt referred to [facility] at home and Caryl is checking to whether or not [facility]
can serve pt's area.
Original Note:
CM following re: discharge planning.
Reviewed pt's chart, met with pt.
Per ID pt will need Ceftriaxone 2mg IV Q24 hrs for 6 weeks.
PT and OT evaluations noted - home PT/OT recommended.
CM discussed it with the pt. pt stated he never had IV infusion therapy at home before and never had VN services. A list of home infusions vendors and VN vendors provided. pt preferred [facility] and home infusion therapy at home.
A referral to [facility] and home infusion therapy made, spoke to retail service representative Rashel.
Awaiting for determination.
D/C plan: home with [facility] and home infusion therapy and family support.
--- NOTE | 2025-01-20 10:05 | W.PN.HOSP.TC ---
Today's Communication/Plan
-
Discharge home once arrangement for home infusion obtained.
Infectious disease to determine type of antibiotic and duration.
Assessment / Plan
Assessment / Plan
Impression:
74-year-old male with past medical history of cystitis, diverticulitis, bilateral knee replacement, done on 2022, 2023, He developed bilateral knee effusions with chills and night sweats as well as pain approximately 1 to 2 weeks ago. The patient
did not take his actual temperature. He reports he started developing swelling to his lower feet and ankles and calves over the past 6 to 8 weeks then to his knees. He was seen in the office by Dr. Moody and had aspiration of both knees which
was sent out for culture and both were positive for infection reportedly with 20K WBC other 50K. He also had elevated CRP. Culture showed positive for proprionobacterium. He is unsure of how both knees became infected however tends to get
multiple scrapes and cuts farming. Patient admitted under hospitalist service, orthopedic consulted and plan for OR.
Started on IV antibiotic, infectious disease consulted.
Ordered echocardiogram.
Will need alf IV antibiotics.
Assessment/plan:
Bilateral septic knees
Right knee 2022, left knee 2023 replacements
Fluid cultures obtained by orthopedic surgeon Dr. Moody in office and sent for cultures
Orthopedic/infectious disease
Status post bilateral knee PJI debridement irrigation and revision with Dr. Moody
Continue IV Rocephin.
Venous duplex bilateral legs 01/10/2025 negative for DVT
Repeat blood culture / OR culture pending.
Echo pending
Ordered PICC line
Iron deficiency anemia
On admission Hgb 10.3, MCV 79.8
Iron level 24, saturation 12
Normal B12, folate
Most recent colonoscopy June 2022 shows:
Diverticulosis in the sigmoid colon and in the descending colon, Internal hemorrhoids.
Start oral iron.
Patient denies dark stools or rectal bleeding
History of diverticulitis in past
CODE STATUS: Full code
DVT prophylaxis: SCDs
Diet:Regular
Disposition: Discharge home once arrangement for home infusion obtained.
Infectious disease to determine type of antibiotic and duration.
Total time spent on today's encounter was 51 minutes which included time spent in counseling the patient/family regarding diagnosis and treatment plan as listed above, goals of care, and symptom management. Case was discussed with nursing staff,
specialists, and care coordinators/case management. All labs and imaging personally reviewed by me. Remainder the time spent in detailed review of previous records, lab data, imaging, and other medical provider documentation.
Anticipated Discharge: Today
Subjective/Interval History
-
Date of Service: January 20, 2025
Patient seen and examined at bedside, denies any chest pain or shortness of breath, no abdominal pain, no nausea, no vomiting, no diarrhea or constipation.
bilateral knee pain with ambulation.
Objective Data
-
Labs:
Laboratory Results
01/20/25
06:25
WBC 9.2
Hgb 9.2 L
Hct 27.9 L
Plt Count 442 H
Sodium 135
Potassium 4.2
Chloride 107
Carbon Dioxide 23
BUN 30 H
Creatinine 1.0
Glucose 94
Calcium 7.9 L
Total Bilirubin 0.5
AST 21
ALT 15
Alkaline Phosphatase 61
Vital Signs:
Vital Signs
Temp Pulse Resp BP Pulse Ox
97.9 F 85 16 134/65 95
01/20/25 07:25 01/20/25 07:25 01/20/25 07:25 01/20/25 07:25 01/20/25 07:25
I&O
01/19/25 01/20/25 01/21/25
06:59 06:59 06:59
Intake Total 560 / 560 480 / 480
Balance 560 / 560 480 / 480
Physical Exam
-
General: Well Developed, Well Nourished, No Apparent Distress and Comfortable
HEENT: Normocephalic, Atraumatic, Moist Mucous Membranes, No Ptosis, PERRLA and Nose Appears Normal
Respiratory: Clear to Auscultation and Non Labored Respirations
Cardiac: Regular Rhythm and S1/S2
Breast: Deferred by me
GI: Soft, Nontender, Nondistended and Normal Bowel Sounds
Genito-urinary: No Costovertebral Tender
Musculoskeletal: No Clubbing, No Cyanosis, No Edema and Other (Bilateral knee netta are clean, no sign of infection or bleeding.)
Skin: Warm
Neuro: Awake, Alert, Oriented, AO x 3 and No Motor Deficits
Psych: Calm
[2025-01-20] MEDS: STERILE WATER FOR INJECTION 20 ML IV (12:31)
[2025-01-20] MEDS: ROXICODONE 10 MG PO (12:31)
[2025-01-20] MEDS: FLUSH (NSS) 2 FLUSH IV (12:32)
[2025-01-20] MEDS: ROCEPHIN 2000 MG IV (12:33)
[2025-01-20 12:54] VITALS: BP 138/83
--- NOTE | 2025-01-20 14:20 | W.DCSUMMARY ---
Discharge Summary
Discharge Data
Date of Admission: 01/16/25
Date of Discharge: 01/20/25
Total time spent discharging patient (in min): 40
-
Pending Results: No
Hospital Course
Hospital course
74-year-old male with past medical history of cystitis, diverticulitis, bilateral knee replacement, done on 2022, 2023, He developed bilateral knee effusions with chills and night sweats as well as pain approximately 1 to 2 weeks ago. The patient
did not take his actual temperature. He reports he started developing swelling to his lower feet and ankles and calves over the past 6 to 8 weeks then to his knees. He was seen in the office by Dr. Moody and had aspiration of both knees which
was sent out for culture and both were positive for infection reportedly with 20K WBC other 50K. He also had elevated CRP. Culture showed positive for proprionobacterium. He is unsure of how both knees became infected however tends to get
multiple scrapes and cuts farming. Patient admitted under hospitalist service, orthopedic consulted and plan for OR.
Started on IV antibiotic, infectious disease consulted.
Ordered echocardiogram shows:
1. There is no vegetation seen. However if clinical suspicion for endocarditis is high would suggest MARIA G.
2. Normal left ventricular size, wall thickness and systolic function. No regional wall motion abnormalities are seen.
3. Thickened mitral valve leaflets with bileaflet mitral valve prolapse with mild to moderate mitral regurgitation.
.
Will need correction IV antibiotics.
Fusion arranged
During hospitalization patient was treated from the following
Bilateral septic knees
Right knee 2022, left knee 2023 replacements
Fluid cultures obtained by orthopedic surgeon Dr. Moody in office and sent for cultures
Orthopedic/infectious disease
Status post bilateral knee PJI debridement irrigation and revision with Dr. Moody
Continue IV Rocephin.
Venous duplex bilateral legs 01/10/2025 negative for DVT
Repeat blood culture / OR culture pending.
Echo shows:
1. There is no vegetation seen. However if clinical suspicion for endocarditis is high would suggest MARIA G.
2. Normal left ventricular size, wall thickness and systolic function. No regional wall motion abnormalities are seen.
3. Thickened mitral valve leaflets with bileaflet mitral valve prolapse with mild to moderate mitral regurgitation.
Home infusion arranged
Iron deficiency anemia
On admission Hgb 10.3, MCV 79.8
Iron level 24, saturation 12
Normal B12, folate
Most recent colonoscopy June 2022 shows:
Diverticulosis in the sigmoid colon and in the descending colon, Internal hemorrhoids.
Start oral iron.
Patient denies dark stools or rectal bleeding
Discharge on oral iron
History of diverticulitis in past
CODE STATUS: Full code
DVT prophylaxis: SCDs
Diet:Regular
Disposition: Discharge home
Total time spent on today's encounter was 40 minutes which included time spent in counseling the patient/family regarding diagnosis and treatment plan as listed above, goals of care, and symptom management. Case was discussed with nursing staff,
specialists, and care coordinators/case management. All labs and imaging personally reviewed by me. Remainder the time spent in detailed review of previous records, lab data, imaging, and other medical provider documentation.
Anticipated Discharge: Today
Discharge Plan
-
Patient Disposition: Home with Home Care
Discharge Diagnosis/Procedures: Bilateral septic knees
Iron deficiency anemia
Diet: As tolerated and Regular
Activity: With assistance and As tolerated
Other Services: VN, PT and OT
Referrals:
PCP [Other] - in less than 1 week
Grady Moody MD [Active, Orthopedics] - in one to two weeks
Nicky Michael MD [Active, Infectious Diseases] - in two to three weeks
Prescriptions:
New
ceftriaxone 2 gram Recon Soln
2,000 mg IV Q24H Qty: 42 0RF
Rx Instructions:
Ceftriaxone 2mg IV Q24 hrs for 6 weeks.
acetaminophen 325 mg Tablet
650 mg PO Q4HPRN PRN (Reason: mild pain/CORDOVA/temp> 100.4F) Qty: 0 0RF
aspirin 325 mg Tablet
325 mg PO DAILY Qty: 30 0RF
oxycodone 5 mg Tablet
5 mg PO Q4HPRN PRN (Reason: moderate pain) 5 Days Qty: 15 0RF
Discharge Orders:
Discharge Patient (As Directed); Ordered 01/20/25
Ordered By: Fay Benton
Discharge Date and Time
Print Language: CZECH
[2025-01-20 15:31] VITALS: BP 133/81
== END 2025-01-20 16:49 | disposition home health service (06) | DRG 462 ==
LOC: 2 SOUTH 22:42
PROVIDERS: Clinical Nurse Specialist Family Health; Nurse Practitioner; Physician Assistant Medical; ADMITTING PHYSICIAN Hospitalist; ATTENDING PHYSICIAN General Practice; CONSULT PHYSICIAN Orthopaedic Surgery; CONSULT PHYSICIAN Student in an Organized Health Care Education/Training Program; EMERGENCY PHYSICIAN Student in an Organized Health Care Education/Training Program
PROC: 0SRC0J9 Replacement of Right Knee Joint with Synthetic Substitute, Cemented, Open Approach (ICD-10-PCS; 2025-01-17)
PROC: 0SRD0J9 Replacement of Left Knee Joint with Synthetic Substitute, Cemented, Open Approach (ICD-10-PCS; 2025-01-17)
PROC: 0SPC0JZ Removal of Synthetic Substitute from Right Knee Joint, Open Approach (ICD-10-PCS; 2025-01-17)
PROC: 0SPD0JZ Removal of Synthetic Substitute from Left Knee Joint, Open Approach (ICD-10-PCS; 2025-01-17)
PROC: 02HV33Z Insertion of Infusion Device into Superior Vena Cava, Percutaneous Approach (ICD-10-PCS; 2025-01-19)
DX: T84.53XA Infection and inflammatory reaction due to internal right knee prosthesis, initial encounter (principal); M00.9 Pyogenic arthritis, unspecified; Y83.1 Surgical operation with implant of artificial internal device as the cause of abnormal reaction of the patient, or of later complication, without mention of misadventure at the time of the procedure; T84.54XA Infection and inflammatory reaction due to internal left knee prosthesis, initial encounter; Z96.653 Presence of artificial knee joint, bilateral
CPT/HCPCS: 71045; 73560; 80053; 82607; 82728; 82746; 83540; 83550; 85025; 85652; 86140; 86850; 86900; 86901; 87040; 87070; 87176; 87205; 93005; 93306; 96374; 97116; 97163; 97166; 99284